=== PATIENT | female | born 1945 | race Caucasian/White ===

== ENCOUNTER → 2017-02-14 | Outpatient (CLI) | payer MEDICARE ==
[~2017-02-14] MED LIST: ACYCLOVIR800 MG PO; ASPIRIN 325MG325 MG PO; CARVEDILOL3.125 MG PO; CLONAZEPAM 1MG T1 MG PO; CYMBALTA60 MG PO; HYDROCODONE-APA1 TA1 PO; IMITREX100 MG PO; LORTAB 5/500 501 TAB PO; METHOTREXATE2.5 MG PO; MULTI VITAMINS1 TA1 PO; PLAVIX75 MG PO; RYTHMOL150 M1 PO; RYTHMOL225 MG PO; TOPCARE ASPIRIN81 MG PO; VITAMIN E500 IU PO; [UNRECOGNIZED DRUG - CODE] PO
--- NOTE | 2017-02-15 16:35 | RADIOLOGY REPORT PS360 ---
DIG MAMM-SCREEN REJI W/CAD CAD Screening ORDERING PHYSICIAN : ALLEN GOODRICH PATIENT AGE: 71 years GENDER: Female COMPARISON: Bilateral mammogram May 2015, April 2014, February 2013.. Right mammogram: June 2015. INDICATION: Routine screening no hormones. No new complaints.. Family history paternal aunt with breast cancer TECHNIQUE: Standard CC and MLO images were obtained. R2 CAD reviewed. FINDINGS: Fairly low density breast with study scattered throughout. No significant new findings. RIGHT BREAST: Scant asymmetry with slightly more evident glandular elements seen superior right breast is stable feature. LEFT BREAST: No new findings IMPRESSION: Stable negative bilateral mammogram BI-RADS CATEGORY: 1_Negative RECOMMENDED FOLLOWUP: 12M 12 MONTH FOLLOW-UP (A letter has been sent to the patient regarding results of the study.)
== END ==
LOC: RAD 15:31
DX: Z12.31 Encounter for screening mammogram for malignant neoplasm of breast (principal)
CPT/HCPCS: G0202